=== PATIENT | female | born 1975 | race Caucasian/White ===

== ENCOUNTER 2022-04-16 15:30 | Emergency (ER) | payer MEDICAID ==
[~2022-04-16] VITALS: Ht 170.2 cm; Wt 88.5 kg
[2022-04-16] MEDS ORDERED: ACETAMINOPHEN ES 500 MG TABLET PO ONE (16:00)
[2022-04-16] MEDS ORDERED: IV NS 0.9% 1,000 ML BAG IV ONE (16:00)
[2022-04-16 16:44] LABS: BASOPHILS % (AUTO) 0.3 % (0.0-2.0); EOSINOPHILS % (AUTO) 0.5 % (0.0-6.0); HEMATOCRIT 33 % (33-45); HEMOGLOBIN 10.4 g/dL (11.5-14.8); LYMPHOCYTES # (AUTO) 1.6 K/uL (0.8-4.8); MEAN CORPUSCULAR HGB CONC 32 g/dl (31.0-36.0); MEAN CORPUSCULAR VOLUME 78 fL (82-100); MONOCYTES # (AUTO) 0.5 K/uL (0.1-1.30); MONOCYTES % (AUTO) 6.5 % (2.0-12.0); NEUTROPHILS # (AUTO) 5.8 K/uL (1.8-8.9); NEUTROPHILS % (AUTO) 72.7 % (43.0-81.0); PLATELET COUNT (AUTO) 395 K/uL (150-450); RED BLOOD CELL COUNT(AUTO) 4.21 MIL/uL (4.0-5.2); WHITE BLOOD COUNT (AUTO) 7.9 K/uL (4.3-11.0)
[2022-04-16] MEDS ORDERED: ACETAMINOPHEN ES 500 MG TABLET ONE (16:50)
[2022-04-16 17:17] LABS: ALBUMIN 3.8 g/dL (3.4-5.0); BILIRUBIN,DIRECT 0.1 mg/dL (0.0-0.2); BILIRUBIN,TOTAL 0.2 mg/dL (0.2-1.0); CALCIUM, SERUM 9.4 mg/dL (8.5-10.1); POTASSIUM 3.8 mmol/L (3.5-5.1)
[2022-04-16] MEDS ORDERED: diphenhydrAMINE HCL 50 MG/ML VIAL ONE (17:27)
[2022-04-16] MEDS ORDERED: FAMOTIDINE (20 MG) 20 MG TABLET PO ONE (17:30)
[2022-04-16] MEDS ORDERED: METOCLOPRAMIDE HCL 10 MG/2 ML VIAL IV ONE (17:30)
[2022-04-16] MEDS ORDERED: diphenhydrAMINE HCL 50 MG/ML VIAL IV ONE (17:30)
[2022-04-16] MEDS ORDERED: predniSONE 20 MG TABLET PO ONE (17:30)
[2022-04-16] MEDS ORDERED: METOCLOPRAMIDE HCL 10 MG/2 ML VIAL ONE (17:30)
[2022-04-16] MEDS ORDERED: predniSONE 20 MG TABLET ONE (17:43)
[2022-04-16] MEDS ORDERED: FAMOTIDINE (20 MG) 20 MG TABLET ONE (17:43)
--- NOTE | 2022-04-16 17:56 | NUR ---
pt awake and alert. Able to ambulate to restroom independently. States she feels a lot better. No signs of distress noted. Call light within reach.
[2022-04-16] MEDS ORDERED: FAMO-131 PO (18:27)
[2022-04-16] MEDS ORDERED: PRED20TA PO (18:27)
[2022-04-16] MEDS ORDERED: EPIN0.3P3 IM (18:27)
[2022-04-16] MEDS ORDERED: DIPH25CA83 PO (18:27)
[2022-04-16 18:35] VITALS: BP 144/91
--- NOTE | 2022-04-16 18:36 | NUR ---
Patient discharged to home in stable condition. Written and verbal after care instructions given. Patient verbalizes understanding of instruction.IV removed. Catheter intact and site benign. Pressure and 4x4 applied to site. No bleeding noted.
== END 2022-04-16 18:36 | disposition home or self-care (01) ==
LOC: ER 15:36
DX: R55 Syncope and collapse (principal); R51.9 Headache, unspecified; L50.0 Allergic urticaria; I10 Essential (primary) hypertension; Z88.8 Allergy status to other drugs, medicaments and biological substances
CPT/HCPCS: 99285; 96374; 71045; 96361; 96375; 93005; 85025; 80048; 80076; 36415; 82962; J1200; J7512; J2765; J7030